=== PATIENT | female | born 1970 | race Caucasian/White ===

== ENCOUNTER 2019-06-19 11:22 | Emergency (ER) | payer OTHER, SELFPAY ==
[2019-06-19] MEDS ORDERED: Ketorolac Tromethamine 30 MG/ML VIAL ONE (12:25)
[2019-06-19] MEDS ORDERED: Metoclopramide HCl 10 MG/2 ML VIAL ONE ×2 (12:25→12:26)
[2019-06-19] MEDS ORDERED: diphenhydrAMINE 50 MG/ML VIAL ONE (12:25)
--- NOTE | 2019-06-19 20:46 | CT ---
CT OF THE BRAIN WITHOUT CONTRAST: 06/19/[address] shows normal sized ventricles with no shift. No intracranial bleeding, subarachnoid hemorrhage, mass or edema was seen. There is no sign of stroke. The visible paranasal sinuses are gustavo ar. IMPRESSION: No acute intracranial findings. POS: HOME
== END 2019-06-19 13:56 | disposition home or self-care (01) ==
LOC: BURERS 11:22
DX: R51 Headache (principal)
CPT/HCPCS: 70450; 96365; 96375; J1200; J1885; J2765

== ENCOUNTER 2021-01-18 13:48 | Emergency (ER) | payer BC, SELFPAY ==
[2021-01-18] MEDS ORDERED: Ondansetron PF 4 MG/2 ML Vial ONE (13:56)
[2021-01-18 14:18] LABS: #Eosinphils 0.1 thou/uL (0.0-0.7); #Lymphocytes 0.9 thou/uL (1.20-3.40); #Monocytes 0.3 thou/uL (0.11-0.59); %Basophils 0.9 % (0.0-1.0); %Eosinophils 1.9 % (0.0-10.0); %Lymphocytes 17.3 % (21.0-51.0); %Monocytes 5.7 % (0.0-10.0); %Neutrophils 74.3 % (42.0-75.0); Mean Corpuscular Hemoglobin 29.2 pg (27.0-31.0); Mean Platelet Volume 7.2 fL (7.4-10.4); Platelet Count 272 thou/uL (130-400); RBC Distribution Width 12.8 % (11.5-14.5); Red Blood Cell (RBC) Count 4.79 mill/uL (4.20-5.40); White Blood Cell (WBC) Count 5.4 thou/uL (4.8-10.8)
[2021-01-18] MEDS ORDERED: Promethazine HCl 25 MG/ML VIAL ONE (14:28)
[2021-01-18 14:30] LABS: ALT (SGPT) 20 U/L (8-55); AST (SGOT) 19 U/L (5-34); Albumin 3.7 g/dL (3.5-5.0); Alkaline Phosphatase 125 U/L (40-110); Anion Gap 15 mmol/L (10-20); BUN (Urea Nitrogen) 8 mg/dL (7.0-18.7); Bilirubin, Total 0.3 mg/dL (0.2-1.2); Calc. Creatinine Clearance 0 mL/min (70-130); Calcium 8.7 mg/dL (7.8-10.44); Carbon Dioxide 26 mmol/L (22-29); Chloride 104 mmol/L (98-107); Glucose 110 mg/dL (70-105); Lipase 38 U/L (8-78); Potassium 3.6 mmol/L (3.5-5.1); Protein, Total 6.7 g/dL (6.0-8.3); Sodium 141 mmol/L (136-145)
[2021-01-18] MEDS ORDERED: Dicyclomine 20 MG TAB ONE (15:22)
[2021-01-18] MEDS ORDERED: Pantoprazole 40 MG VIAL ONE (15:22)
== END 2021-01-18 16:06 | disposition home or self-care (01) ==
LOC: BURERS 13:48
DX: A08.4 Viral intestinal infection, unspecified (principal); R11.2 Nausea with vomiting, unspecified
CPT/HCPCS: 80053; 83690; 85025; 96365; 96375; C9113; J2405; J2550